=== PATIENT | female | born 1950 | race Two or more races ===

== ENCOUNTER → 2017-09-08 | Emergency (ER) | payer OTHER ==
[~2017-09-08] VITALS: Ht 160 cm; Wt 58.1 kg
[~2017-09-08] MED LIST: AMLODIPINE BESYL5 MG; ASPIRIN EC81 MG; CARVEDILOL12.5 MG; COZAAR100 MG; NATURE-THROI16.25 MG; PLAVIX75 MG; REPATHA SY140 MG/1 M
== END | disposition home or self-care (01) ==
LOC: ER 16:43
DX: R10.32 Left lower quadrant pain (principal); K57.32 Diverticulitis of large intestine without perforation or abscess without bleeding

== ENCOUNTER 2017-09-11 11:26 | Inpatient (IN) | payer OTHER ==
[~2017-09-11] VITALS: Ht 160 cm; Wt 59.0 kg
[2017-09-15] MEDS ORDERED: PROTONIX40 MG PO (08:30)
== END 2017-09-15 16:07 | disposition home or self-care (01) | DRG 392 ==
LOC: ER 11:26 → SURH 14:05
DX: K57.32 Diverticulitis of large intestine without perforation or abscess without bleeding (principal); K29.00 Acute gastritis without bleeding; M32.8 Other forms of systemic lupus erythematosus; I11.9 Hypertensive heart disease without heart failure; Z98.61 Coronary angioplasty status

== ENCOUNTER 2017-11-30 11:12 | Day surgery (SDC) | payer OTHER ==
[~2017-11-30 11:12] MED LIST changes: +PROTONIX40 MG PO
== END 2017-11-30 14:10 | disposition home or self-care (01) ==
LOC: AMB-ENDOS 11:12
DX: K57.32 Diverticulitis of large intestine without perforation or abscess without bleeding (principal); K64.8 Other hemorrhoids

== ENCOUNTER 2024-06-25 11:28 | Emergency (ER) | payer OTHER ==
[~2024-06-25] VITALS: Ht 160 cm; Wt 47.6 kg
[2024-06-25] MEDS ORDERED: FARXIGA10 MG PO (12:27)
[2024-06-25] MEDS ORDERED: PLAQUENIL PO (12:29)
[2024-06-25] MEDS ORDERED: REPATHA SU140 MG/1 M SQ (12:30)
[2024-06-25] MEDS ORDERED: PRAVASTATIN SOD10 MG PO (12:30)
[2024-06-25] MEDS ORDERED: RINGERS SOLUTION,LACTATED 1,000 ML IV STA (13:22)
[2024-06-25 13:54] LABS: HEMOGLOBIN 13.6 g/dL (12.0-15.00); MEAN CELL VOLUME 88.7 fL (80.00-100.00); MEAN CORPUSCULAR HEMOGLOBIN 30.1 pg (27.00-32.0); MEAN CORPUSCULAR HGB CONC 33.9 g/dl (32.0-36.0); PLATELET COUNT 293 K/uL (150-450); RED BLOOD COUNT 4.51 M/uL (4.00-6.00); RED CELL DISTRIBUTION WIDTH 14.9 % (11.5-14.5)
[2024-06-25 14:33] LABS: PH,URINE 5.5 (5.0-8.0); URINE APPEARANCE Clear; URINE BILIRRUBIN Negative (NEGATIVE); URINE BLOOD Negative; URINE COLOR Yellow; URINE KETONE 15 (NEGATIVE); URINE LEUKOCYTE Negative; URINE NITRATE Negative; URINE PROTEIN 30 (NEGATIVE); URINE UROBILINOGEN 0.2 E.U./dl
[2024-06-25 14:35] LABS: URINE BACTERIA 563.1 uL (0.0-1933); URINE EPITHELIAL CELLS 56.5 uL (0.0-38.8); URINE RBC 8.3 uL (0.0-20.8); URINE WBC 6.6 uL (0.0-23.2)
[2024-06-25 14:41] LABS: URINE CAST 0.76 uL (0.0-1.40); URINE GLUCOSE >=1000 MG/DL (NEGATIVE)
[2024-06-25 14:59] LABS: ALBUMIN 4.1 gm/dL (3.4-5.0); BILIRUBIN TOTAL 0.7 mg/dL (0.3-1.2); BILIRUBIN,CONJUGATED 0.17 mg/dL (0.0-0.2); BILIRUBIN,UNCONJUGATED 0.53 mg/dL (0.0-0.6); CALCIUM 9.4 mg/dL (8.5-10.1); CREATININE SERUM 1.07 mg/dL (0.55-1.02); GFR 50.55; POTASSIUM 4.25 mEq/L (3.5-5.1); TOTAL PROTEIN 7.2 gm/dL (6.4-8.2)
== END 2024-06-25 17:46 | disposition home or self-care (01) ==
LOC: ER 11:29
PROVIDERS: General Practice
DX: R10.30 Lower abdominal pain, unspecified (principal); R10.9 Unspecified abdominal pain; Z20.822 Contact with and (suspected) exposure to COVID-19; Z91.041 Radiographic dye allergy status